=== PATIENT | male | born 1945 | race Caucasian/White ===

== ENCOUNTER → 2017-04-14 | Outpatient (CLI) | payer MEDICARE, OTHER ==
[~2017-04-14] MED LIST: AMIO100T4 PO; AMIO200T42 PO; APIX2.5T PO; APIX5TAB PO; ASCO-96 PO; CEFU250T66 PO; FURO20TA3 PO; FURO40TA6 PO; MINO50TA2 PO; OXYC15TA PO; OXYC20TA2 PO; PANT20TA2 PO; PANT40TA3 PO; POTA10TA5 PO; PRED20TA PO; PRED5TAB PO; SPIR25TA3 PO; SPIR50TA2 PO
== END | disposition home or self-care (01) ==
LOC: CFH 12:33
PROVIDERS: ATTEND Internal Medicine
DX: R06.02 Shortness of breath (principal); Z95.2 Presence of prosthetic heart valve; Z79.899 Other long term (current) drug therapy
CPT/HCPCS: 71020

== ENCOUNTER 2017-05-12 14:36 | Emergency (ER) | payer MEDICARE, OTHER ==
[~2017-05-12] VITALS: Ht 180.3 cm; Wt 78.2 kg
[2017-05-12 14:37] VITALS: BP 96/65
[2017-05-12] MEDS ORDERED: METHYLNALTREXONE 12 MG/0.6 ML SQ ONE (16:30)
== END 2017-05-12 17:20 | disposition home or self-care (01) ==
LOC: ED 17:00
DX: K59.03 Drug induced constipation (principal); T40.2X5A Adverse effect of other opioids, initial encounter; Y92.9 Unspecified place or not applicable; M46.1 Sacroiliitis, not elsewhere classified; I11.0 Hypertensive heart disease with heart failure; I50.9 Heart failure, unspecified; E11.9 Type 2 diabetes mellitus without complications; Z87.891 Personal history of nicotine dependence
CPT/HCPCS: 72110; 81003; 96372

== ENCOUNTER 2017-07-24 15:42 | Emergency (ER) | payer MEDICARE, OTHER ==
[~2017-07-24] VITALS: Ht 180.3 cm; Wt 75.0 kg
[2017-07-24] MEDS ORDERED: METHYLNALTREXONE 12 MG/0.6 ML SQ ONE (17:00)
[2017-07-24] MEDS ORDERED: SODIUM CHLORIDE FLUSH 10ML SYR IVF ONE (18:00)
[2017-07-24 18:07] VITALS: BP 119/79
== END 2017-07-24 18:32 | disposition left against medical advice (07) ==
LOC: ED 18:16
DX: K59.00 Constipation, unspecified (principal); I11.0 Hypertensive heart disease with heart failure; I50.9 Heart failure, unspecified; E11.9 Type 2 diabetes mellitus without complications; I48.91 Unspecified atrial fibrillation; Z87.891 Personal history of nicotine dependence; Z95.2 Presence of prosthetic heart valve
CPT/HCPCS: 74020; 99284

== ENCOUNTER 2017-08-04 07:12 | Day surgery (SDC) | payer MEDICARE, OTHER ==
[~2017-08-04] VITALS: Ht 180.3 cm; Wt 75.0 kg
[2017-08-04] MEDS ORDERED: LACTATED RINGERS 1,000 ML IV SCH (08:05)
[2017-08-04 08:08] VITALS: BP 122/82
[2017-08-04] MEDS ORDERED: LIDOCAINE 1%, 2ML SQ PRN (08:30)
[2017-08-04] MEDS ORDERED: FENTANYL PF 100 MCG/2ML ONE (09:00)
[2017-08-04] MEDS ORDERED: PROPOFOL 10 MG/ML, 50ML ONE (09:10)
[2017-08-04] MEDS ORDERED: PROPOFOL 10 MG/ML, 20ML ONE (09:10)
[2017-08-04] MEDS ORDERED: ONDANSETRON 2MG/ML, 2ML ONE (09:10)
[2017-08-04] MEDS ORDERED: DEXAMETHASONE 4 MG/ML, 1ML ONE (09:10)
[2017-08-04] MEDS ORDERED: ACETAMINOPHEN 325 MG TABLET PO PRN (09:30)
[2017-08-04] MEDS ORDERED: FENTANYL PF 100 MCG/2ML IV PRN (09:30)
[2017-08-04] MEDS ORDERED: HYDROmorphone 1 MG/ML, 1ML IV PRN (09:30)
[2017-08-04] MEDS ORDERED: OXYcodone 5 MG/5 ML ORAL.SOL UDC PO PRN (09:30)
[2017-08-04] MEDS ORDERED: PROMETHAZINE 25 MG/ML, 1ML IV PRN (09:30)
== END 2017-08-04 12:05 ==
LOC: OUT 07:12
PROVIDERS: ATTEND Internal Medicine
DX: Z09 Encounter for follow-up examination after completed treatment for conditions other than malignant neoplasm (principal); D12.0 Benign neoplasm of cecum; D12.3 Benign neoplasm of transverse colon; K21.9 Gastro-esophageal reflux disease without esophagitis; K31.5 Obstruction of duodenum; K63.89 Other specified diseases of intestine; J44.9 Chronic obstructive pulmonary disease, unspecified; Z87.39 Personal history of other diseases of the musculoskeletal system and connective tissue; Z98.890 Other specified postprocedural states
CPT/HCPCS: 43239; 45384; 45385; 88305; J1100; J2405; J2704; J3010; J7120

== ENCOUNTER 2017-08-14 13:16 | Inpatient (IN) | payer MEDICARE, OTHER ==
[~2017-08-14] VITALS: Ht 180.3 cm; Wt 75.3 kg
[2017-08-14] MEDS ORDERED: HYDROmorphone 1 MG/ML, 1ML ONE (14:53)
[2017-08-14] MEDS ORDERED: HYDROmorphone 2 MG/ML, 1ML IVPush PRN ×2 (15:00→20:00)
[2017-08-14 15:04] LABS: HEMATOCRIT 48.4 % (39.2-51.8); HEMOGLOBIN 16.3 g/dL (13.7-18.0); WHITE BLOOD COUNT 16.8 x10^3/uL (3.4-10)
[2017-08-14 15:15] LABS: BLOOD UREA NITROGEN 22 mg/dL (7-18)
[2017-08-14] MEDS ORDERED: FUROSEMIDE 20 MG/2 ML IV ONE (16:30)
[2017-08-14] MEDS ORDERED: FUROSEMIDE 20 MG/2 ML ONE (16:32)
[2017-08-14] MEDS ORDERED: DIAZEPAM 5 MG/ML, 2ML IVPush PRN (18:00)
[2017-08-14] MEDS ORDERED: hydrALAzine 20 MG/ML, 1ML IVPush PRN (20:00)
[2017-08-14] MEDS ORDERED: ACETAMINOPHEN 325 MG TABLET PO PRN (20:00)
[2017-08-14] MEDS ORDERED: BISACODYL 10 MG SUPP PR PRN (20:00)
[2017-08-14] MEDS ORDERED: ENALAPRILAT 1.25 MG/ML, 2ML IVPush PRN (20:00)
[2017-08-14] MEDS ORDERED: OXYcodone IR 5MG TABLET PO PRN (20:00)
[2017-08-14] MEDS ORDERED: ONDANSETRON 2MG/ML, 2ML IVPush PRN (20:00)
[2017-08-14] MEDS ORDERED: POLYETHYLENE GLYCOL 17 GM PACKET PO PRN (20:00)
[2017-08-14 21:50] VITALS: BP 111/75
[2017-08-14] MEDS: OXYcodone IR 5MG TABLET PO SCH (21:55)
[2017-08-14] MEDS: SPIRONOLACTONE 25 MG TABLET PO SCH (21:56)
[2017-08-14] MEDS: FUROSEMIDE 20 MG TABLET PO SCH (21:58)
[2017-08-14] MEDS: GABAPENTIN 100 MG CAPSULE PO SCH (21:59)
[2017-08-14] MEDS: POTASSIUM CHLORIDE 20 MEQ TAB.ER.PRT PO SCH (22:17)
[2017-08-14] MEDS: PANTOPROZOLE 40MG TABLET PO SCH (22:17)
[2017-08-15 01:49] VITALS: BP 111/77
[2017-08-15] MEDS: OXYcodone IR 5MG TABLET PO SCH ×4 (04:00→22:39)
[2017-08-15 05:48] LABS: HEMATOCRIT 45.8 % (39.2-51.8); HEMOGLOBIN 15.4 g/dL (13.7-18.0); WHITE BLOOD COUNT 12.9 x10^3/uL (3.4-10)
[2017-08-15] MEDS: GABAPENTIN 100 MG CAPSULE PO SCH ×4 (06:00→22:39)
[2017-08-15 06:01] LABS: BLOOD UREA NITROGEN 25 mg/dL (7-18)
[2017-08-15 06:05] LABS: ASPARTATE AMINO TRANSFERASE 26 U/L (15-37)
[2017-08-15 08:30] VITALS: BP 111/74
[2017-08-15] MEDS: ASCORBIC ACID 500 MG TABLET PO SCH (09:00)
[2017-08-15] MEDS: POTASSIUM CHLORIDE 20 MEQ TAB.ER.PRT PO SCH ×2 (09:00→22:38)
[2017-08-15] MEDS: SENNA/DOCUSATE TABLET PO SCH ×2 (09:00→13:53)
[2017-08-15] MEDS ORDERED: LORazepam 2 MG/ML, 1ML IVPush ONE (09:00)
[2017-08-15] MEDS: AMIODARONE 200 MG TABLET PO SCH (09:00)
[2017-08-15] MEDS: SPIRONOLACTONE 25 MG TABLET PO SCH ×2 (09:00→22:39)
[2017-08-15] MEDS: PANTOPROZOLE 40MG TABLET PO SCH ×2 (09:00→22:38)
[2017-08-15] MEDS: FUROSEMIDE 20 MG TABLET PO SCH ×3 (09:00→22:38)
[2017-08-15] MEDS ORDERED: ENOXAPARIN 30 MG/0.3 ML SQ SCH (13:00)
[2017-08-15 14:00] VITALS: BP 127/55
[2017-08-15 22:08] VITALS: BP 116/73
[2017-08-15] MEDS: METHOCARBAMOL 500 MG TABLET PO PRN (22:41)
[2017-08-16 02:20] VITALS: BP 100/66
[2017-08-16] MEDS: OXYcodone IR 5MG TABLET PO SCH ×4 (04:00→22:19)
[2017-08-16] MEDS: GABAPENTIN 100 MG CAPSULE PO SCH ×4 (05:44→22:19)
[2017-08-16] MEDS: AMIODARONE 200 MG TABLET PO SCH (08:28)
[2017-08-16 08:46] VITALS: BP 125/90
[2017-08-16] MEDS ORDERED: PHENYLEPHRINE 10 MG/ML ONE (10:59)
[2017-08-16] MEDS ORDERED: PROPOFOL 10 MG/ML, 20ML ONE (10:59)
[2017-08-16] MEDS ORDERED: GADOBUTROL 7.5 MMOL/7.5 ML PFS ONE (12:46)
[2017-08-16] MEDS ORDERED: FENTANYL PF 100 MCG/2ML ONE (13:16)
[2017-08-16] MEDS ORDERED: MIDAZOLAM 1 MG/ML, 2ML IV PRN (13:30)
[2017-08-16] MEDS ORDERED: FENTANYL PF 100 MCG/2ML IV PRN (13:30)
[2017-08-16] MEDS ORDERED: hydrALAzine 20 MG/ML, 1ML IV PRN (13:30)
[2017-08-16] MEDS ORDERED: LABETALOL 5MG/ML, 20ML IV PRN (13:30)
[2017-08-16] MEDS ORDERED: ONDANSETRON 2MG/ML, 2ML IVPush PRN (13:30)
[2017-08-16] MEDS ORDERED: HYDROmorphone 1 MG/ML, 1ML IV PRN (13:30)
[2017-08-16] MEDS ORDERED: OXYcodone 5 MG/5 ML ORAL.SOL UDC PO PRN (13:30)
[2017-08-16] MEDS: SPIRONOLACTONE 25 MG TABLET PO SCH ×2 (13:59→22:20)
[2017-08-16] MEDS: POTASSIUM CHLORIDE 20 MEQ TAB.ER.PRT PO SCH ×2 (14:01→22:19)
[2017-08-16] MEDS: SENNA/DOCUSATE TABLET PO SCH (14:04)
[2017-08-16] MEDS: PANTOPROZOLE 40MG TABLET PO SCH ×2 (14:04→22:20)
[2017-08-16] MEDS: ASCORBIC ACID 500 MG TABLET PO SCH (14:04)
[2017-08-16] MEDS: FUROSEMIDE 20 MG TABLET PO SCH ×3 (14:04→22:19)
[2017-08-16 14:35] VITALS: BP 108/77
[2017-08-16] MEDS: ENOXAPARIN 30 MG/0.3 ML SQ SCH (17:00)
[2017-08-16] MEDS ORDERED: METHYLNALTREXONE 12 MG/0.6 ML SQ ONE (17:30)
[2017-08-16 22:13] VITALS: BP 96/66
[2017-08-16] MEDS: METHOCARBAMOL 500 MG TABLET PO PRN (22:19)
[2017-08-17 02:31] VITALS: BP 100/68
[2017-08-17] MEDS: OXYcodone IR 5MG TABLET PO SCH ×4 (04:00→23:03)
[2017-08-17] MEDS: GABAPENTIN 100 MG CAPSULE PO SCH ×4 (05:18→22:17)
[2017-08-17 06:52] LABS: HEMATOCRIT 42.2 % (39.2-51.8); HEMOGLOBIN 14.2 g/dL (13.7-18.0); WHITE BLOOD COUNT 12.4 x10^3/uL (3.4-10)
[2017-08-17 07:03] LABS: BLOOD UREA NITROGEN 22 mg/dL (7-18)
[2017-08-17 08:23] VITALS: BP 102/73
[2017-08-17] MEDS: AMIODARONE 200 MG TABLET PO SCH (10:37)
[2017-08-17] MEDS: POTASSIUM CHLORIDE 20 MEQ TAB.ER.PRT PO SCH ×2 (10:38→22:17)
[2017-08-17] MEDS: FUROSEMIDE 20 MG TABLET PO SCH ×3 (10:38→22:17)
[2017-08-17] MEDS: PANTOPROZOLE 40MG TABLET PO SCH ×2 (10:39→22:17)
[2017-08-17] MEDS: SPIRONOLACTONE 25 MG TABLET PO SCH ×2 (10:39→22:17)
[2017-08-17] MEDS ORDERED: ENOXAPARIN 30 MG/0.3 ML SQ SCH (13:00)
[2017-08-17] MEDS ORDERED: NALOXONE 1 MG/ML, 2ML ONE (13:52)
[2017-08-17] MEDS ORDERED: CEFAZOLIN PMX 1GM/50ML 50 ML ONE (13:52)
[2017-08-17] MEDS ORDERED: MIDAZOLAM 1 MG/ML, 5ML ONE (13:52)
[2017-08-17] MEDS ORDERED: FLUMAZENIL 0.1 MG/1 ML, 5ML ONE (13:52)
[2017-08-17] MEDS ORDERED: FENTANYL PF 100 MCG/2ML ONE (13:52)
[2017-08-17] MEDS ORDERED: MAGNESIUM CITRATE 300ML ORAL SOL PO PRN (14:00)
[2017-08-17] MEDS ORDERED: MAGNESIUM HYDROXIDE 8%, 30ML UDC PO PRN (14:00)
[2017-08-17] MEDS ORDERED: LIDOCAINE 1%, 20ML ONE (15:49)
[2017-08-17] MEDS: SENNA/DOCUSATE TABLET PO SCH (16:14)
[2017-08-17] MEDS: ENOXAPARIN 30 MG/0.3 ML SQ SCH ×2 (17:47→17:57)
[2017-08-17] MEDS: METHOCARBAMOL 500 MG TABLET PO PRN (22:17)
[2017-08-17] MEDS: ASCORBIC ACID 500 MG TABLET PO SCH (22:18)
[2017-08-18 01:51] VITALS: BP 89/62
[2017-08-18] MEDS: OXYcodone IR 5MG TABLET PO SCH ×4 (04:00→23:36)
[2017-08-18] MEDS: GABAPENTIN 100 MG CAPSULE PO SCH ×4 (06:00→21:04)
[2017-08-18 08:13] VITALS: BP 101/68
[2017-08-18 10:33] VITALS: BP 111/80
[2017-08-18] MEDS: ASCORBIC ACID 500 MG TABLET PO SCH (10:39)
[2017-08-18] MEDS: PANTOPROZOLE 40MG TABLET PO SCH ×2 (10:39→21:04)
[2017-08-18] MEDS: SPIRONOLACTONE 25 MG TABLET PO SCH ×2 (10:39→21:03)
[2017-08-18] MEDS: AMIODARONE 200 MG TABLET PO SCH (10:39)
[2017-08-18] MEDS: FUROSEMIDE 20 MG TABLET PO SCH ×3 (10:39→21:04)
[2017-08-18] MEDS: SENNA/DOCUSATE TABLET PO SCH (10:39)
[2017-08-18] MEDS: POTASSIUM CHLORIDE 20 MEQ TAB.ER.PRT PO SCH ×2 (10:39→21:04)
[2017-08-18 14:51] VITALS: BP 97/67
[2017-08-18] MEDS ORDERED: FUROSEMIDE 20 MG/2 ML IV ONE (15:30)
[2017-08-18] MEDS: ENOXAPARIN 30 MG/0.3 ML SQ SCH ×3 (16:35→16:43)
[2017-08-18 20:49] VITALS: BP 86/64
[2017-08-18 21:15] VITALS: BP 107/70
[2017-08-19 02:36] VITALS: BP 101/71
[2017-08-19] MEDS: OXYcodone IR 5MG TABLET PO SCH ×4 (04:00→23:07)
[2017-08-19 06:00] LABS: HEMATOCRIT 42.1 % (39.2-51.8); HEMOGLOBIN 14.1 g/dL (13.7-18.0); WHITE BLOOD COUNT 10.6 x10^3/uL (3.4-10)
[2017-08-19] MEDS: GABAPENTIN 100 MG CAPSULE PO SCH ×4 (06:00→20:53)
[2017-08-19 06:18] LABS: BLOOD UREA NITROGEN 20 mg/dL (7-18)
[2017-08-19] MEDS ORDERED: BACITRACIN OINT 500U/GM, 15 GM ONE (06:41)
[2017-08-19] MEDS ORDERED: THROMBIN 20,000 UNIT VIAL TP ONE ×2 (06:41→09:04)
[2017-08-19] MEDS ORDERED: VANCOMYCIN 1,000 MG ONE (06:41)
[2017-08-19] MEDS ORDERED: EPINEPHRINE 1 MG/ML, 1ML ONE (06:41)
[2017-08-19] MEDS ORDERED: BUPIVACAINE/PF 0.5% ONE (06:41)
[2017-08-19] MEDS ORDERED: BACITRACIN 50,000 UNIT ONE (06:42)
[2017-08-19] MEDS ORDERED: SUCCINYLCHOLINE 20 MG/ML, 10ML ONE (07:37)
[2017-08-19] MEDS ORDERED: CEFAZOLIN 1,000 MG ONE (07:37)
[2017-08-19] MEDS ORDERED: PROPOFOL 10 MG/ML, 20ML ONE (07:37)
[2017-08-19] MEDS ORDERED: ONDANSETRON 2MG/ML, 2ML ONE (07:37)
[2017-08-19] MEDS ORDERED: DEXAMETHASONE 4 MG/ML, 1ML ONE (07:37)
[2017-08-19] MEDS ORDERED: FENTANYL PF 100 MCG/2ML ONE ×5 (07:43)
[2017-08-19] MEDS: PANTOPROZOLE 40MG TABLET PO SCH ×2 (09:00→20:53)
[2017-08-19] MEDS: FUROSEMIDE 20 MG TABLET PO SCH ×3 (09:00→21:00)
[2017-08-19] MEDS: SPIRONOLACTONE 25 MG TABLET PO SCH ×2 (09:00→21:00)
[2017-08-19] MEDS: ASCORBIC ACID 500 MG TABLET PO SCH (09:00)
[2017-08-19] MEDS: POTASSIUM CHLORIDE 20 MEQ TAB.ER.PRT PO SCH ×2 (09:00→20:56)
[2017-08-19] MEDS ORDERED: BUPIVACAINE/PF 0.5% INFIL ONE (09:03)
[2017-08-19] MEDS ORDERED: EPINEPHRINE 1 MG/ML, 1ML INFIL ONE (09:03)
[2017-08-19] MEDS ORDERED: BACITRACIN 50,000 UNIT IRRIG ONE (09:04)
[2017-08-19] MEDS ORDERED: BACITRACIN OINT 500U/GM, 15 GM TP ONE (09:05)
[2017-08-19] MEDS ORDERED: ALBUTEROL SULFATE 2.5 MG/3 ML NPPB PRN (09:30)
[2017-08-19] MEDS ORDERED: MEPERIDINE/PF 25MG/0.5ML IVPush PRN (09:30)
[2017-08-19] MEDS ORDERED: FENTANYL PF 100 MCG/2ML IV PRN (09:30)
[2017-08-19] MEDS ORDERED: OXYcodone 5 MG/5 ML ORAL.SOL UDC PO PRN (09:30)
[2017-08-19] MEDS ORDERED: hydrALAzine 20 MG/ML, 1ML IV PRN (09:30)
[2017-08-19] MEDS ORDERED: METOPROLOL 1 MG/ML, 5ML IV PRN (09:30)
[2017-08-19] MEDS ORDERED: PROMETHAZINE 25 MG/ML, 1ML IV PRN (09:30)
[2017-08-19] MEDS ORDERED: ACETAMINOPHEN 325 MG TABLET PO PRN (09:30)
[2017-08-19] MEDS ORDERED: OMNIPAQUE 180 MG/ML, 20ML VIAL IT ONE (09:50)
[2017-08-19] MEDS ORDERED: OXYcodone 5 MG/5 ML ORAL.SOL UDC ONE (10:59)
[2017-08-19] MEDS ORDERED: HYDROmorphone 2 MG/ML, 1ML ONE (10:59)
[2017-08-19] MEDS ORDERED: ACETAMINOPHEN 650 MG/20.3 ML UDC ONE (10:59)
[2017-08-19] MEDS: HYDROmorphone 1 MG/ML, 1ML IV PRN ×3 (11:04→11:30)
[2017-08-19] MEDS ORDERED: LORazepam 1MG TABLET PO PRN (13:30)
[2017-08-19] MEDS ORDERED: DIPHENHYDRAMINE 50 MG CAPSULE PO PRN (13:30)
[2017-08-19] MEDS ORDERED: ONDANSETRON 2MG/ML, 2ML IV PRN (13:30)
[2017-08-19] MEDS ORDERED: morphine SULFATE 10 MG/ML, 1ML IV PRN (13:30)
[2017-08-19] MEDS ORDERED: PROMETHAZINE 25 MG/ML, 1ML IM PRN (13:30)
[2017-08-19] MEDS ORDERED: DIPHENHYDRAMINE 50 MG/ML, 1ML IM PRN (13:30)
[2017-08-19] MEDS ORDERED: CYCLOBENZAPRINE 10 MG TABLET PO PRN (13:30)
[2017-08-19] MEDS ORDERED: HYDROmorphone 2MG TABLET PO PRN (13:30)
[2017-08-19] MEDS ORDERED: BISACODYL 10 MG SUPP PR PRN (13:30)
[2017-08-19] MEDS ORDERED: DIPHENHYDRAMINE 50 MG/ML, 1ML IVPush PRN (13:30)
[2017-08-19] MEDS ORDERED: MAGNESIUM HYDROXIDE 8%, 30ML UDC PO PRN (13:30)
[2017-08-19] MEDS ORDERED: HYDROmorphone 2 MG/ML, 1ML IM PRN (13:30)
[2017-08-19] MEDS ORDERED: OXYcodone/APAP 5/325MG TABLET PO PRN (13:30)
[2017-08-19] MEDS ORDERED: HYDROcodone/APAP 10/325 MG TABLET PO PRN (13:30)
[2017-08-19] MEDS ORDERED: METHOCARBAMOL 1,000 MG in DEXTROSE 5% 100 ML IV ONE (14:00)
[2017-08-19] MEDS: AMIODARONE 200 MG TABLET PO SCH (14:57)
[2017-08-19 15:29] VITALS: BP 81/54
[2017-08-19] MEDS: NS + 20MEQ KCL 1,000 ML IV SCH (16:00)
[2017-08-19] MEDS: CEFAZOLIN PMX 2GM/50ML 50 ML IVPB SCH (16:00)
[2017-08-19] MEDS ORDERED: ENOXAPARIN 40 MG/0.4 ML SQ SCH (17:00)
[2017-08-19] MEDS ORDERED: SODIUM CHLORIDE 0.9% 1,000 ML IV ONE (17:25)
[2017-08-19 19:59] VITALS: BP 81/61
[2017-08-19 20:50] VITALS: BP 108/76
[2017-08-19] MEDS ORDERED: ZOLPIDEM 5MG TABLET PO PRN (21:00)
[2017-08-19] MEDS ORDERED: METHOCARBAMOL 750 MG in DEXTROSE 5% 100 ML IV SCH (22:00)
[2017-08-19 22:53] VITALS: BP 121/85
[2017-08-19 23:24] VITALS: BP 101/68
[2017-08-20] MEDS: CEFAZOLIN PMX 2GM/50ML 50 ML IVPB SCH ×3 (00:28→16:30)
[2017-08-20 03:43] VITALS: BP 94/67
[2017-08-20] MEDS: NS + 20MEQ KCL 1,000 ML IV SCH (03:46)
[2017-08-20] MEDS: OXYcodone IR 5MG TABLET PO SCH ×3 (03:46→18:09)
[2017-08-20] MEDS: GABAPENTIN 100 MG CAPSULE PO SCH ×3 (05:20→18:09)
[2017-08-20 05:59] LABS: HEMATOCRIT 39.5 % (39.2-51.8); HEMOGLOBIN 13.4 g/dL (13.7-18.0); WHITE BLOOD COUNT 14.1 x10^3/uL (3.4-10)
[2017-08-20 06:15] LABS: BLOOD UREA NITROGEN 19 mg/dL (7-18)
[2017-08-20] MEDS ORDERED: METHOCARBAMOL 750 MG TABLET PO PRN (07:00)
[2017-08-20 08:18] VITALS: BP 99/75
[2017-08-20] MEDS: PANTOPROZOLE 40MG TABLET PO SCH (08:41)
[2017-08-20] MEDS: ASCORBIC ACID 500 MG TABLET PO SCH (08:41)
[2017-08-20] MEDS: SPIRONOLACTONE 25 MG TABLET PO SCH (08:41)
[2017-08-20] MEDS: AMIODARONE 200 MG TABLET PO SCH (08:45)
[2017-08-20] MEDS ORDERED: SENNA/DOCUSATE TABLET PO SCH (09:00)
[2017-08-20] MEDS ORDERED: OXYcodone IR 5MG TABLET PO PRN (09:00)
[2017-08-20] MEDS ORDERED: FUROSEMIDE 20 MG TABLET PO SCH (10:00)
[2017-08-20] MEDS ORDERED: SODIUM CHLORIDE 0.9% 1,000 ML IV SCH (10:00)
[2017-08-20] MEDS ORDERED: OXYC20TA2 PO (10:12)
[2017-08-20] MEDS ORDERED: METH750T87 PO (10:14)
[2017-08-20] MEDS ORDERED: DOCU-131 PO (10:15)
[2017-08-20 13:29] VITALS: BP 112/81
[2017-08-21] MEDS ORDERED: METHOCARBAMOL 750 MG TABLET PO SCH (22:00)
== END 2017-08-20 18:55 | disposition home or self-care (01) | DRG 515 ==
LOC: ED 15:19 → EDIP 17:31 → 4NOR 20:57
PROVIDERS: ADMIT Internal Medicine; ATTEND Hospitalist
PROC: 0QS03ZZ Reposition Lumbar Vertebra, Percutaneous Approach (ICD-10-PCS; principal; 2017-08-17)
PROC: 0QU03JZ Supplement Lumbar Vertebra with Synthetic Substitute, Percutaneous Approach (ICD-10-PCS; 2017-08-17)
PROC: 01NR0ZZ Release Sacral Nerve, Open Approach (ICD-10-PCS; 2017-08-19)
PROC: 0QS03ZZ Reposition Lumbar Vertebra, Percutaneous Approach (ICD-10-PCS; 2017-08-19)
PROC: 0QU03JZ Supplement Lumbar Vertebra with Synthetic Substitute, Percutaneous Approach (ICD-10-PCS; 2017-08-19)
PROC: 01NB0ZZ Release Lumbar Nerve, Open Approach (ICD-10-PCS; 2017-08-19 07:30)
DX: M84.48XA Pathological fracture, other site, initial encounter for fracture (principal); E43 Unspecified severe protein-calorie malnutrition; D68.59 Other primary thrombophilia; E27.40 Unspecified adrenocortical insufficiency; I11.0 Hypertensive heart disease with heart failure; I48.91 Unspecified atrial fibrillation; I50.30 Unspecified diastolic (congestive) heart failure; E11.9 Type 2 diabetes mellitus without complications; D75.89 Other specified diseases of blood and blood-forming organs; D72.829 Elevated white blood cell count, unspecified; M48.06 Spinal stenosis, lumbar region; E88.2 Lipomatosis, not elsewhere classified; G89.29 Other chronic pain; I25.10 Atherosclerotic heart disease of native coronary artery without angina pectoris; M47.814 Spondylosis without myelopathy or radiculopathy, thoracic region; Z95.0 Presence of cardiac pacemaker; Z95.1 Presence of aortocoronary bypass graft; Z95.2 Presence of prosthetic heart valve; Z68.23 Body mass index [BMI] 23.0-23.9, adult; I77.6 Arteritis, unspecified
CPT/HCPCS: 22514; 36415; 71010; 72100; 72146; 72158; 80048; 80053; 80061; 81003; 82040; 83036; 83735; 83880; 84132; 84439; 84443; 85025; 85610; 85730; 93005; 96374; 96375; 99156; 99157; A9585; C1713; J0171; J0690; J1100; J1170; J1650; J2250; J2270; J2405; J2704; J3010; J3370; J3480; J3490; Q9965; 22511; C1781; J0330; J1940; J2060; J2310; J2370; J2800; J7030; J7512

== ENCOUNTER → 2017-09-21 | Outpatient (CLI) | payer MEDICARE, OTHER ==
[~2017-09-21] MED LIST changes: +DOCU-131 PO; +METH750T87 PO
== END | disposition home or self-care (01) ==
LOC: RAD 13:16
PROVIDERS: ATTEND Physician Assistant
DX: S33.120A Subluxation of L2/L3 lumbar vertebra, initial encounter (principal); S32.040A Wedge compression fracture of fourth lumbar vertebra, initial encounter for closed fracture; I07.1 Rheumatic tricuspid insufficiency; I50.22 Chronic systolic (congestive) heart failure; M48.061 Spinal stenosis, lumbar region without neurogenic claudication; M47.896 Other spondylosis, lumbar region; M43.8X6 Other specified deforming dorsopathies, lumbar region; M43.8X4 Other specified deforming dorsopathies, thoracic region; Z95.2 Presence of prosthetic heart valve; X58.XXXA Exposure to other specified factors, initial encounter; Y93.89 Activity, other specified; Y92.89 Other specified places as the place of occurrence of the external cause; Y99.8 Other external cause status
CPT/HCPCS: 72110; 93306; 93970

== ENCOUNTER 2017-10-26 11:51 | Day surgery (SDC) | payer MEDICARE, OTHER ==
[~2017-10-26] VITALS: Ht 180.3 cm; Wt 75.0 kg
[2017-10-26] MEDS ORDERED: LACTATED RINGERS 1,000 ML IV SCH (12:27)
[2017-10-26 12:38] VITALS: BP 119/84
[2017-10-26] MEDS ORDERED: PLEASE ENTER HEIGHT AND WEIGHT MC SCH (13:00)
[2017-10-26] MEDS ORDERED: PROPOFOL 10 MG/ML, 20ML ONE (13:12)
[2017-10-26] MEDS ORDERED: ONDANSETRON 2MG/ML, 2ML IVPush PRN (15:00)
[2017-10-26] MEDS ORDERED: FENTANYL PF 100 MCG/2ML IV PRN (15:00)
[2017-10-26] MEDS ORDERED: HYDROmorphone 1 MG/ML, 1ML IV PRN (15:00)
[2017-10-26] MEDS ORDERED: hydrALAzine 20 MG/ML, 1ML IV PRN (15:00)
[2017-10-26] MEDS ORDERED: LABETALOL 5MG/ML, 20ML IV PRN (15:00)
[2017-10-26] MEDS ORDERED: OXYcodone 5 MG/5 ML ORAL.SOL UDC PO PRN (15:00)
[2017-10-26] MEDS ORDERED: ACETAMINOPHEN 325 MG TABLET PO PRN (15:00)
== END 2017-10-26 16:15 ==
LOC: OUT 11:51
PROVIDERS: ATTEND Specialist
DX: M54.5 Low back pain (principal); Z95.1 Presence of aortocoronary bypass graft; J44.9 Chronic obstructive pulmonary disease, unspecified; Z98.890 Other specified postprocedural states; Z87.39 Personal history of other diseases of the musculoskeletal system and connective tissue
CPT/HCPCS: 72146; 72148; J2704; J3010; J7120

== ENCOUNTER 2017-10-30 05:00 | Inpatient (IN) | payer MEDICARE, OTHER ==
[~2017-10-30] VITALS: Ht 180.3 cm; Wt 75.2 kg
[2017-10-30] MEDS ORDERED: HYDROmorphone 1 MG/ML, 1ML ONE ×2 (05:50→07:37)
[2017-10-30] MEDS ORDERED: ONDANSETRON 2MG/ML, 2ML ONE (05:50)
[2017-10-30] MEDS ORDERED: SODIUM CHLORIDE FLUSH 10ML SYR IVF ONE (06:00)
[2017-10-30] MEDS ORDERED: DIAZEPAM 5 MG/ML, 2ML IV ONE (06:00)
[2017-10-30] MEDS ORDERED: ONDANSETRON 2MG/ML, 2ML IVPush ONE (06:00)
[2017-10-30] MEDS ORDERED: SODIUM CHLORIDE 0.9% 1,000ML IVBOLUS ONE (06:00)
[2017-10-30] MEDS: HYDROmorphone 1 MG/ML, 1ML IVPush PRN ×2 (06:15→07:49)
[2017-10-30 06:18] LABS: HEMATOCRIT 43.6 % (39.2-51.8); HEMOGLOBIN 14.4 g/dL (13.7-18.0); WHITE BLOOD COUNT 7.6 x10^3/uL (3.4-10)
[2017-10-30 06:25] LABS: BLOOD UREA NITROGEN 11 mg/dL (7-18)
[2017-10-30 06:29] LABS: ASPARTATE AMINO TRANSFERASE 17 U/L (15-37)
[2017-10-30] MEDS ORDERED: LABETALOL 5MG/ML, 20ML IVPush PRN (10:30)
[2017-10-30] MEDS ORDERED: ONDANSETRON ODT 4 MG PO PRN (10:30)
[2017-10-30] MEDS ORDERED: ENALAPRILAT 1.25 MG/ML, 2ML IVPush PRN (10:30)
[2017-10-30] MEDS ORDERED: ONDANSETRON 2MG/ML, 2ML IVPush PRN (10:30)
[2017-10-30] MEDS: OXYcodone IR 5MG TABLET PO PRN ×4 (10:38→21:31)
[2017-10-30] MEDS: HYDROmorphone 2 MG/ML, 1ML IVPush PRN ×7 (11:18→21:31)
[2017-10-30 14:45] VITALS: BP 115/78
[2017-10-30] MEDS: FUROSEMIDE 20 MG TABLET PO SCH ×2 (15:24→21:44)
[2017-10-30 19:30] VITALS: BP 98/56
[2017-10-30] MEDS: PANTOPROZOLE 40MG TABLET PO SCH (21:44)
[2017-10-30] MEDS: POTASSIUM CHLORIDE 10 MEQ TABLET.ER PO SCH (21:44)
[2017-10-31] MEDS: HYDROmorphone 2 MG/ML, 1ML IVPush PRN ×8 (00:44→22:36)
[2017-10-31] MEDS: OXYcodone IR 5MG TABLET PO PRN ×8 (00:44→22:36)
[2017-10-31 02:55] VITALS: BP 99/65
[2017-10-31 08:10] VITALS: BP 94/70
[2017-10-31] MEDS: POTASSIUM CHLORIDE 10 MEQ TABLET.ER PO SCH ×2 (09:28→20:30)
[2017-10-31] MEDS: PANTOPROZOLE 40MG TABLET PO SCH ×2 (09:28→20:30)
[2017-10-31] MEDS: ASCORBIC ACID 500 MG TABLET PO SCH (09:28)
[2017-10-31] MEDS: FUROSEMIDE 20 MG TABLET PO SCH ×4 (09:28→20:31)
[2017-10-31 09:37] LABS: ASPARTATE AMINO TRANSFERASE 12 U/L (15-37); BLOOD UREA NITROGEN 10 mg/dL (7-18)
[2017-10-31 09:54] LABS: HEMATOCRIT 39.2 % (39.2-51.8); HEMOGLOBIN 12.9 g/dL (13.7-18.0); WHITE BLOOD COUNT 5.9 x10^3/uL (3.4-10)
[2017-10-31] MEDS ORDERED: OXYcodone IR 5MG TABLET PO PRN (11:00)
[2017-10-31 13:49] VITALS: BP 91/59
[2017-10-31] MEDS: ENOXAPARIN 40 MG/0.4 ML SQ SCH (16:11)
[2017-10-31 19:25] VITALS: BP 90/63
[2017-11-01] MEDS: OXYcodone IR 5MG TABLET PO PRN ×4 (01:48→20:07)
[2017-11-01] MEDS: HYDROmorphone 2 MG/ML, 1ML IVPush PRN ×6 (01:50→23:30)
[2017-11-01 01:56] VITALS: BP 102/68
[2017-11-01 07:38] VITALS: BP 94/63
[2017-11-01] MEDS: FUROSEMIDE 20 MG TABLET PO SCH ×3 (07:44→20:08)
[2017-11-01] MEDS: ASCORBIC ACID 500 MG TABLET PO SCH (07:44)
[2017-11-01] MEDS: PANTOPROZOLE 40MG TABLET PO SCH ×2 (07:44→20:08)
[2017-11-01] MEDS: POTASSIUM CHLORIDE 20 MEQ TAB.ER.PRT PO SCH ×2 (07:44→20:08)
[2017-11-01] MEDS ORDERED: HYDROmorphone 2 MG/ML, 1ML IVPush ONE (11:30)
[2017-11-01] MEDS ORDERED: HYDROmorphone 1 MG/ML, 1ML IV ONE (13:00)
[2017-11-01 13:22] VITALS: BP 99/65
[2017-11-01] MEDS ORDERED: NALOXONE 1 MG/ML, 2ML ONE (14:05)
[2017-11-01] MEDS ORDERED: FENTANYL PF 100 MCG/2ML ONE (14:05)
[2017-11-01] MEDS ORDERED: FLUMAZENIL 0.1 MG/1 ML, 5ML ONE (14:05)
[2017-11-01] MEDS ORDERED: MIDAZOLAM 1 MG/ML, 5ML ONE (14:05)
[2017-11-01] MEDS ORDERED: LIDOCAINE 1%, 20ML ONE (14:14)
[2017-11-01] MEDS ORDERED: CEFAZOLIN PMX 1GM/50ML 50 ML ONE (14:18)
[2017-11-01] MEDS: ENOXAPARIN 40 MG/0.4 ML SQ SCH (16:35)
[2017-11-01 19:32] VITALS: BP 96/69
[2017-11-02] MEDS: OXYcodone IR 5MG TABLET PO PRN ×6 (01:07→23:52)
[2017-11-02 02:41] VITALS: BP 111/76
[2017-11-02] MEDS: HYDROmorphone 2 MG/ML, 1ML IVPush PRN ×4 (02:42→20:38)
[2017-11-02 07:05] VITALS: BP 82/51
[2017-11-02 08:42] VITALS: BP 107/74
[2017-11-02] MEDS: POTASSIUM CHLORIDE 20 MEQ TAB.ER.PRT PO SCH ×2 (09:33→20:35)
[2017-11-02] MEDS: FUROSEMIDE 20 MG TABLET PO SCH ×3 (09:33→20:35)
[2017-11-02] MEDS: PANTOPROZOLE 40MG TABLET PO SCH ×2 (09:34→21:00)
[2017-11-02] MEDS: ASCORBIC ACID 500 MG TABLET PO SCH (09:34)
[2017-11-02 13:27] VITALS: BP 88/59
[2017-11-02] MEDS ORDERED: HYDROmorphone 2 MG/ML, 1ML IVPush PRN (14:30)
[2017-11-02] MEDS: ENOXAPARIN 40 MG/0.4 ML SQ SCH (15:41)
[2017-11-02] MEDS ORDERED: DOCUSATE 100 MG CAPSULE PO PRN (16:00)
[2017-11-02] MEDS ORDERED: MAGNESIUM CITRATE 300ML ORAL SOL PO PRN (16:00)
[2017-11-02 19:33] VITALS: BP 97/76
[2017-11-02] MEDS ORDERED: POLYETHYLENE GLYCOL 17 GM PACKET PO PRN (23:30)
[2017-11-03 02:39] VITALS: BP 107/71
[2017-11-03] MEDS: HYDROmorphone 2 MG/ML, 1ML IVPush PRN (02:39)
[2017-11-03] MEDS: OXYcodone IR 5MG TABLET PO PRN ×2 (06:19→12:26)
[2017-11-03 07:57] VITALS: BP 96/67
[2017-11-03] MEDS: POTASSIUM CHLORIDE 20 MEQ TAB.ER.PRT PO SCH (09:00)
[2017-11-03 09:32] LABS: HEMOGLOBIN 12.6 g/dL (13.7-18.0); WHITE BLOOD COUNT 6.5 x10^3/uL (3.4-10)
[2017-11-03 09:41] LABS: ASPARTATE AMINO TRANSFERASE 10 U/L (15-37); BLOOD UREA NITROGEN 10 mg/dL (7-18)
[2017-11-03] MEDS: ASCORBIC ACID 500 MG TABLET PO SCH (10:48)
[2017-11-03] MEDS: FUROSEMIDE 20 MG TABLET PO SCH ×2 (10:48→16:00)
[2017-11-03] MEDS: PANTOPROZOLE 40MG TABLET PO SCH (10:49)
[2017-11-03] MEDS ORDERED: MAGNESIUM HYDROXIDE 8%, 30ML UDC PO PRN (11:00)
[2017-11-03] MEDS: ENOXAPARIN 40 MG/0.4 ML SQ SCH (16:00)
== END 2017-11-03 18:10 | disposition home or self-care (01) | DRG 515 ==
LOC: ED 05:23 → EDIP 07:52 → 4NOR 08:54 → ED 08:55 → 4EST 11-02 18:26 → 4WST 11-02 21:30
PROVIDERS: ADMIT Internal Medicine; ATTEND Internal Medicine
PROC: 0PS43ZZ Reposition Thoracic Vertebra, Percutaneous Approach (ICD-10-PCS; principal; 2017-11-01)
PROC: 0PU43JZ Supplement Thoracic Vertebra with Synthetic Substitute, Percutaneous Approach (ICD-10-PCS; 2017-11-01)
DX: M48.54XA Collapsed vertebra, not elsewhere classified, thoracic region, initial encounter for fracture (principal); I50.33 Acute on chronic diastolic (congestive) heart failure; E46 Unspecified protein-calorie malnutrition; I95.9 Hypotension, unspecified; D68.69 Other thrombophilia; I48.2 Chronic atrial fibrillation; F11.20 Opioid dependence, uncomplicated; I11.0 Hypertensive heart disease with heart failure; E83.41 Hypermagnesemia; E11.9 Type 2 diabetes mellitus without complications; G89.4 Chronic pain syndrome; I25.10 Atherosclerotic heart disease of native coronary artery without angina pectoris; M81.0 Age-related osteoporosis without current pathological fracture; Z82.62 Family history of osteoporosis; Z95.0 Presence of cardiac pacemaker; Z95.1 Presence of aortocoronary bypass graft; Z87.891 Personal history of nicotine dependence; Z68.23 Body mass index [BMI] 23.0-23.9, adult
CPT/HCPCS: 22512; 22513; 36415; 71010; 80053; 82533; 83735; 83880; 84100; 85025; 93005; 96374; 96375; 96376; 99156; 99157; J0690; J1170; J1650; J2250; J2405; J3010; J3360; J3490; C9359; J2310; J7030